=== PATIENT | female | born 1945 | race Caucasian/White ===

== ENCOUNTER 2022-06-23 08:14 | Day surgery (SDC) | payer OTHER ==
[2022-06-19 13:31] LABS: BASOPHILS % (AUTO) 0.7 % (0.0-5.0); EOSINOPHILS % (AUTO) 3.6 % (0.0-8.0); HEMATOCRIT 41.5 % (36-48); LYMPHOCYTES % (AUTO) 28.1 % (21.0-51.0); MEAN CORPUSCULAR HEMOGLOBIN 27.5 pg (27.0-33.0); MEAN CORPUSCULAR HGB CONC 31.3 g/dL (32.0-36.0); MEAN CORPUSCULAR VOLUME 87.7 fL (79-99); MONOCYTES % (AUTO) 6.3 % (3.0-13.0); PLATELET COUNT (AUTO) 277 K/uL (130-400); RED BLOOD CELL COUNT(AUTO) 4.73 MIL/uL (4.00-5.50); WHITE BLOOD COUNT (AUTO) 6.7 K/uL (4.8-10.8)
[2022-06-19 13:44] LABS: INR 0.93 (0.85-1.15); PROTHROMBIN TIME 10.2 SEC (9.6-11.6)
[2022-06-19 13:47] LABS: CREATININE 0.9 mg/dL (0.5-1.5); POTASSIUM 4.1 mmol/L (3.5-5.1)
[2022-06-20 09:23] VITALS: BP 164/73
[~2022-06-23] VITALS: Ht 154.9 cm; Wt 86.6 kg
[2022-06-23] VITALS (10 sets, daily range): BP systolic 95–171; BP diastolic 48–83
[~2022-06-23 08:14] MED LIST: ACET-2079 PO; AEC81 PO; BACL10TA PO; CHOL500051 PO; GABA600T10 PO; HYDR200T4 PO; LOSA25TA41 PO; METO-408 PO; NIFE30TA98 PO; PRAV40TA3 PO; UBID100C45 PO
[2022-06-23] MEDS ORDERED: 0.9%NACL 1000ML 1,000 ML IV ONE (09:37)
[2022-06-23] MEDS ORDERED: NITROGLYCERIN 50MG VIAL ONE (13:24)
[2022-06-23] MEDS ORDERED: IOHEXOL 350 MG/ML 100ML INFUS..BTL IV ONE (13:24)
[2022-06-23] MEDS ORDERED: LIDOCAINE HCL 1% 20 ML VIAL ONE (13:24)
[2022-06-23] MEDS ORDERED: HEPARIN 10,000 UNIT/10ML (1,000 UNIT/ML) VIAL ONE (13:24)
[2022-06-23] MEDS ORDERED: NICARDIPINE 25MG INJ IV ONE (13:24)
[2022-06-23] MEDS ORDERED: MIDAZOLAM HCL 1 MG/ML 2ML VIAL ONE (13:25)
[2022-06-23] MEDS ORDERED: FENTANYL CITRATE PF 50 MCG/1 ML 2ML VIAL ONE (13:25)
[2022-06-23] MEDS ORDERED: IODIXANOL 320 MG/ML 100 ML VIAL ONE (13:26)
[2022-06-23] MEDS ORDERED: DEXTROSE 50%-WATER 50 ML DISP.SYRIN IV PRN (15:30)
[2022-06-23] MEDS ORDERED: 0.9%NACL 1000ML 1,000 ML IV SCH (15:30)
[2022-06-23] MEDS ORDERED: GLUCAGON 1MG KIT 1 MG ML IM PRN (15:30)
[2022-06-23] MEDS ORDERED: ACETAMINOPHEN WITH CODEINE 1 TAB TAB ONE (15:37)
== END 2022-06-23 17:25 | disposition home or self-care (01) ==
LOC: DAH 08:14 → EDSEX 12:00 → DAH 17:25
PROVIDERS: ATTEND Internal Medicine Cardiovascular Disease
DX: I70.238 Atherosclerosis of native arteries of right leg with ulceration of other part of lower leg (principal); I10 Essential (primary) hypertension; E78.5 Hyperlipidemia, unspecified; Z79.01 Long term (current) use of anticoagulants; Z79.899 Other long term (current) drug therapy; Z90.710 Acquired absence of both cervix and uterus; Z90.49 Acquired absence of other specified parts of digestive tract; Z98.890 Other specified postprocedural states; Z72.89 Other problems related to lifestyle; Z82.49 Family history of ischemic heart disease and other diseases of the circulatory system; Z79.82 Long term (current) use of aspirin
CPT/HCPCS: 80048; 85025; 85610; 85730; 36415; 71045; 93005; 75716; 36246; 37252; 37253; C1894 ×3; C1760; C1753; C1769; A4663 ×2; J3010; J7030; J3490 ×2; J1644 ×2; J2250; Q9967; A4215; A4222; A4221; A4216; A4606; A4223 ×3; 92978; 92979; 99156; 99157